=== PATIENT | male | born 1995 | race African-American/Black ===

== ENCOUNTER 2017-12-25 01:23 | Emergency (ER) | payer SELFPAY ==
[~2017-12-25] VITALS: Ht 180.3 cm; Wt 104.3 kg
[2017-12-25] MEDS ORDERED: NKM (01:30)
[2017-12-25 01:40] VITALS: BP 113/70
--- NOTE | 2017-12-25 01:56 | Emergency Room Report ---
History of Present Illness General Chief Complaint: Headache Source: Patient Present Illness HPI 22-year-old male with no medical problems presents with frontal and left-sided headache for the past roughly 4 days, gradual onset, throbbing, partial relief with ibuprofen, then developed epigastric area pain for the last 2 days, he reports no appetite, nausea, photophobia, but denies fevers, denies vomiting, denies any urinary complaints, denies any diarrhea or constipation, reports no other symptoms. Allergies: Coded Allergies: No Known Allergies (Unverified , 12/25/17) Patient History Past Medical History: see triage record Reviewed Nursing Documentation: PMH: Agreed; PSxH: Agreed Nursing Documentation-PMH Past Medical History: No Stated History Review of Systems All Other Systems: negative except mentioned in HPI Physical Exam Vital Signs Date Time Temp Pulse Resp B/P (MAP) Pulse Ox O2 Delivery O2 Flow Rate FiO2 12/25/17 01:26 98.0 91 16 113/70 96 Room Air 98.1 Sp02 EP Interpretation: reviewed, normal General Appearance: no apparent distress, alert, non-toxic Head: normocephalic Eyes: bilateral eye normal inspection, bilateral eye PERRL, bilateral eye EOMI ENT: normal ENT inspection, hearing grossly normal, normal pharynx, no angioedema, normal voice, moist mucus membranes Neck: normal inspection, full range of motion, supple, supple/symm/no masses Respiratory: chest non-tender, lungs clear, normal breath sounds, chest symmetrical, palpation of chest normal Cardiovascular #1: normal peripheral pulses, regular rate, rhythm Cardiovascular #2: 2+ radial (R), 2+ radial (L) Gastrointestinal: normal inspection, non tender, soft, no mass, no guarding, no rebound Rectal: deferred Genitourinary: normal inspection, no CVA tenderness Musculoskeletal: back normal, gait/station normal, normal range of motion, non- tender, no calf tenderness Neurologic: alert, responsive, compensation programs manager III-XII nml as tested, motor strength/tone normal, sensory intact, speech normal Psychiatric: judgement/insight normal, memory normal, mood/affect normal, no suicidal/homicidal ideation Skin: normal color, no rash, warm/dry, normal turgor Lymphatic: no adenopathy Medical Decision Making Diagnostic Impression: Primary Impression: Headache ER Course patient with a headache, symptomatology sounds most consistent with migraine, abdominal pain complaint seems to be milder; his abdomen is soft and but he complain of anorexia I suspect hunger pangs secondary to the nausea and loss of appetite from headache given ivf, reglan, benadryl, pepcid on re-eval, patient had great improvement and will be dc'd. wnl Last Vital Signs Date Time Temp Pulse Resp B/P (MAP) Pulse Ox O2 Delivery O2 Flow Rate FiO2 12/25/17 01:40 98.1 91 16 113/70 96 Room Air 98.1 Status: improved Disposition: HOME, SELF-CARE Condition: Stable RANDY DUDLEY M.D Dec 25, 2017 01:56
[2017-12-25] MEDS ORDERED: Acetaminophen 500mg (ES) tab ORAL ONE (02:00)
[2017-12-25] MEDS ORDERED: DiphenhydrAMINE 50mg/ml Inj IVP ONE (02:00)
[2017-12-25] MEDS ORDERED: Metoclopramide 10mg/2ml Inj IVP ONE (02:00)
[2017-12-25 02:49] LABS: BASOPHILS % (AUTO) 1.8 % (0.0-2.0); HEMOGLOBIN 14.3 G/DL (14.2-18.0); LYMPHOCYTES % (AUTO) 20.6 % (20.0-45.0); MEAN CORPUSCULAR VOLUME 92 FL (80-99); MONOCYTES % (AUTO) 11.7 % (1.0-10.0); PLATELET COUNT 200 K/UL (150-450); RED BLOOD COUNT 4.77 M/UL (4.70-6.10); RED CELL DISTRIBUTION WIDTH 10.7 % (11.6-14.8)
[2017-12-25 02:58] LABS: ANION GAP 6 mmol/L (5-15); BLOOD UREA NITROGEN 10 mg/dL (7-18); CALCIUM 8.8 MG/DL (8.5-10.1); CARBON DIOXIDE 27 MMOL/L (21-32); CHLORIDE 107 MMOL/L (98-107); POTASSIUM 3.6 MMOL/L (3.5-5.1); SODIUM 140 MMOL/L (136-145)
[2017-12-25 03:02] LABS: ALANINE AMINOTRANSFERASE 24 U/L (12-78); ALBUMIN 3.7 G/DL (3.4-5.0); ALKALINE PHOSPHATASE 35 U/L (46-116); ASPARTATE AMINO TRANSFERASE 13 U/L (15-37)
[2017-12-25] MEDS ORDERED: REGLAN10 MG ORAL (03:46)
[2017-12-25] MEDS ORDERED: BENADRYL25 M3 PO (03:47)
[2017-12-25 03:53] VITALS: BP 118/71
== END 2017-12-25 04:13 | disposition home or self-care (01) ==
LOC: EMR 01:50
DX: R51 Headache (principal)
CPT/HCPCS: 36415; 80053; 83690; 85025; 96360; 96374; 96375; 99284; J1200; J2765

== ENCOUNTER 2018-02-12 23:26 | Emergency (ER) | payer SELFPAY ==
[~2018-02-12] VITALS: Ht 175.3 cm; Wt 99.8 kg
[~2018-02-12 23:26] MED LIST: BENADRYL25 M3 PO; NKM; REGLAN10 MG ORAL
--- NOTE | 2018-02-12 23:40 | Emergency Room Report ---
History of Present Illness General Chief Complaint: Chest Pain Source: Patient Present Illness HPI Is a 23-year-old male with no past medical history. He presents with chief complaint of chest pain. Pain is diffuse in nature. Worse with inspiration. Worse with movement. Can't even bend over. The been ongoing for 2-3 days. Has not anything for it. No trauma. Hurts when he moves. He was at work so his employer told to come in to check it out. Denies any other complaint. Pain is 8 out of 10. No radiation. No diaphoresis. No shortness of breath. Allergies: Coded Allergies: No Known Allergies (Unverified , 12/25/17) Patient History Past Medical History: see triage record, old chart reviewed Past Surgical History: none Pertinent Family History: none Social History: Denies: smoking Immunizations: other Reviewed Nursing Documentation: PMH: Agreed; PSxH: Agreed Nursing Documentation-PM Past Medical History: No Stated History Review of Systems Eye: Denies: eye pain, blurred vision ENT: Denies: ear pain, nose congestion, throat swelling Respiratory: Denies: cough, shortness of breath Cardiovascular: Reports: chest pain; Denies: palpitations Gastrointestinal: Denies: abdominal pain, diarrhea, nausea, vomiting Musculoskeletal: Denies: back pain, joint pain Skin: Denies: rash Neurological: Denies: headache, numbness Endocrine: Denies: increased thirst, increased urine Hematologic/Lymphatic: Denies: easy bruising All Other Systems: negative except mentioned in HPI Physical Exam Vital Signs Date Time Temp Pulse Resp B/P (MAP) Pulse Ox O2 Delivery O2 Flow Rate FiO2 02/12/18 23:35 98.0 76 16 132/70 98 Room Air 98.1 vitals normal Sp02 EP Interpretation: reviewed, normal General Appearance: well appearing, no apparent distress, alert Head: normocephalic, atraumatic Eyes: bilateral eye PERRL, bilateral eye EOMI ENT: hearing grossly normal, normal pharynx Neck: full range of motion, supple, no meningismus Respiratory: lungs clear, normal breath sounds, other - diffuse pain with palpation mostly in the left chest Cardiovascular #1: regular rate, rhythm, no murmur Gastrointestinal: normal bowel sounds, non tender, no mass, no organomegaly, no bruit, non-distended Musculoskeletal: back normal, gait/station normal, normal range of motion Psychiatric: mood/affect normal Skin: warm/dry Medical Decision Making Diagnostic Impression: Primary Impression: Non-cardiac chest pain ER Course She presents with atypical chest pain. Noncardiac in origin. It is reproducible and been ongoing for several days. EKG normal. Troponin negative. We will discharge home. I seen once of ACS, PE, dissection to name a few. Lab Results Impression labs normal EKG Diagnostic Results Rate: normal Rhythm: NSR ST Segments: no acute changes ASA given to the pt in ED: No Rhythm Strip Diag. Results Rhythm Strip Time: 23:40 EP Interpretation: yes Rate: 69 Rhythm: NSR, no PVC's, no ectopy Chest X-Ray Diagnostic Results Chest X-Ray Diagnostic Results : Chest X-Ray Ordered: Yes # of Views/Limited/Complete: 1 View Indication: Chest Pain EP Interpretation: Yes Interpretation: no consolidation, no effusion, no pneumothorax, no acute cardiopulmonary disease Impression: No acute disease Electronically Signed by: Philippe Delatorre MD Last Vital Signs Date Time Temp Pulse Resp B/P (MAP) Pulse Ox O2 Delivery O2 Flow Rate FiO2 02/12/18 23:35 98.0 76 16 132/70 98 Room Air 98.1 Status: improved Disposition: HOME, SELF-CARE Condition: Stable Scripts Ibuprofen* (MOTRIN*) 600 Mg Tablet 600 MG ORAL THREE TIMES A DAY, #30 TAB 0 Refills Prov: PHILIPPE DELATORRE M.D. 02/13/18 Additional Instructions: Follow-up with your doctor in 7 days. Return if symptom worsen. PHILIPPE DELATORRE M.D. Feb 12, 2018 23:40
[2018-02-12] MEDS ORDERED: Ketorolac 30mg Inj IV ONE (23:45)
[2018-02-12 23:48] VITALS: BP 120/77
[2018-02-13 00:19] LABS: ANION GAP 6 mmol/L (5-15); BLOOD UREA NITROGEN 10 mg/dL (7-18); CALCIUM 8.8 MG/DL (8.5-10.1); CARBON DIOXIDE 29 MMOL/L (21-32); CHLORIDE 104 MMOL/L (98-107); CREATININE 1.1 MG/DL (0.55-1.30); POTASSIUM 3.5 MMOL/L (3.5-5.1); SODIUM 139 MMOL/L (136-145)
[2018-02-13 00:24] LABS: BASOPHILS % (AUTO) 1.8 % (0.0-2.0); EOSINOPHILS % (AUTO) 3.8 % (0.0-3.0); HEMATOCRIT 39.8 % (42.0-52.0); HEMOGLOBIN 13.7 G/DL (14.2-18.0); LYMPHOCYTES % (AUTO) 37.2 % (20.0-45.0); MEAN CORPUSCULAR VOLUME 91 FL (80-99); NEUTROPHILS % (AUTO) 48.2 % (45.0-75.0); PLATELET COUNT 206 K/UL (150-450); RED BLOOD COUNT 4.38 M/UL (4.70-6.10); RED CELL DISTRIBUTION WIDTH 10.6 % (11.6-14.8)
[2018-02-13 00:33] LABS: CKMB 1.3 NG/ML (0.0-3.6); CREATINE KINASE 198 U/L (26-308)
[2018-02-13 00:58] VITALS: BP 115/66
[2018-02-13] MEDS ORDERED: IBUPROFEN600 MG ORAL (01:07)
[2018-02-13 01:20] VITALS: BP 115/66
--- NOTE | 2018-02-13 02:55 | Diagnostic Imaging Report ---
EXAM: XR Chest, 1 View. CLINICAL HISTORY: Chest pain TECHNIQUE: Frontal view of the chest. COMPARISON: No relevant prior studies available. FINDINGS: Lungs: Lung volumes are within normal limits. No evidence of airspace consolidation or diffuse interstitial abnormality. Pleural spaces: No significant pleural effusion.. No pneumothorax. Heart: Unremarkable. No cardiomegaly. Mediastinum: Unremarkable. Bones: No acute fracture. Old, healed fracture of the right clavicle. IMPRESSION: No evidence of active cardiopulmonary abnormality.
--- NOTE | 2018-02-14 18:41 | Cardiology Report ---
APPROVED REPORT EKG Measurement Heart [id number] Normal sinus rhythm Cannot rule out Anterior infarct, age undetermined Abnormal ECG
== END 2018-02-13 01:20 | disposition home or self-care (01) ==
LOC: EMR 23:57
DX: R07.89 Other chest pain (principal)
CPT/HCPCS: 36415; 71045; 80048; 82550; 82553; 84484; 85025; 93005; 96374; 99284; J1885

== ENCOUNTER 2018-05-19 19:18 | Emergency (ER) | payer SELFPAY ==
[~2018-05-19] VITALS: Ht 180.3 cm; Wt 104.3 kg
[~2018-05-19 19:18] MED LIST changes: +IBUPROFEN600 MG ORAL
[2018-05-19 19:28] VITALS: BP 127/74
[2018-05-19] MEDS ORDERED: Norco 5mg/325mg tab ORAL ONE (20:00)
--- NOTE | 2018-05-19 20:23 | Emergency Room Report ---
History of Present Illness General Chief Complaint: Pain Source: Patient Present Illness HPI 23-year-old male presents to the emergency department complaining of 7 out of 10 in severity localized pain to the lateral right ankle since last night. Patient reports that he tripped when he was running and twisted his ankle. Patient reports pain is exacerbated upon attempts to move his foot in any way or weightbearing. He denies previous injury to this extremity denies open wounds or bruising. Denies numbness tingling or loss of sensation or gross motor movements of the extremities, incontinence of bowel or bladder. Denies CP , Palpitations, LOC, AMS, dizziness, Changes in Vision, weakness or a sudden severe headache. Allergies: Coded Allergies: No Known Allergies (Unverified , 12/25/17) Patient History Past Medical History: see triage record Past Surgical History: none Pertinent Family History: none Immunizations: UTD Reviewed Nursing Documentation: PMH: Agreed; PSxH: Agreed Nursing Documentation-PMH Past Medical History: No History, Except For Hx Asthma: Yes Review of Systems All Other Systems: negative except mentioned in HPI Physical Exam Vital Signs Date Time Temp Pulse Resp B/P (MAP) Pulse Ox O2 Delivery O2 Flow Rate FiO2 05/19/18 19:21 98.2 95 16 117/70 95 Sp02 EP Interpretation: reviewed, normal General Appearance: no apparent distress, alert, GCS 15, non-toxic Head: normocephalic, atraumatic Eyes: bilateral eye normal inspection, bilateral eye PERRL ENT: hearing grossly normal, normal voice Neck: full range of motion Respiratory: lungs clear, normal breath sounds, speaking full sentences Cardiovascular #1: regular rate, rhythm, normal capillary refill Cardiovascular #2: 2+ dorsalis pedis (R) Musculoskeletal: back normal, normal range of motion, swelling - lateral right ankle, tender - lateral right ankle and dorsum and lateral aspect of the right foot. Neurologic: alert, oriented x3, responsive, motor strength/tone normal, sensory intact, speech normal, grossly normal Psychiatric: judgement/insight normal Skin: normal color, no rash, warm/dry, well hydrated Medical Decision Making PA Attestation Dr. Clancy is my supervising Physician whom patient management has been discussed with. Diagnostic Impression: Primary Impression: Moderate ankle sprain Qualified Codes: S93.401A - Sprain of unspecified ligament of right ankle, initial encounter ER Course 23-year-old male presents to the emergency department complaining of 7 out of 10 in severity localized pain to the lateral right ankle since last night. Patient reports that he tripped when he was running and twisted his ankle. Patient reports pain is exacerbated upon attempts to move his foot in any way or weightbearing. He denies previous injury to this extremity denies open wounds or bruising. Denies numbness tingling or loss of sensation or gross motor movements of the extremities, incontinence of bowel or bladder. Denies CP , Palpitations, LOC, AMS, dizziness, Changes in Vision, weakness or a sudden severe headache. Ddx considered but are not limited to Fracture, dislocation, contusion, Sprain/ Strain/Spasm. Vital signs: are WNL, pt. is afebrile H&PE are most consistent with musculoskeletal injury will perform imaging to r/ o fractures/dislocations. ORDERS: - X-rays of the right FOOT and ANKLE - negative for fx, Dislocation, or significant soft tissue injury, per preliminary read in ED, and signed by KEVIN Thomas, my supervising physician has reviewed, and agrees with my interpretation. ED INTERVENTIONS: - Smithers PO -Air splint Splint applied to the right ankle by in tube conversion technician. Pt. remains neurovascularly intact. -Patient is provided with crutches and instructed on their use -I do not identify an emergent condition at this time. With current presentation , pt. is stable for close outpatient follow up and conservative treatment. D/ w pt. to return promptly to ED with worsening or new symptoms.- Pt. verbalizes' understanding and agreement with proposed treatment plan. DISCHARGE: At this time pt. is stable for d/c to home. Will provide printed patient care instructions, and any necessary prescriptions. Care plan and follow up instructions have been discussed with the patient prior to discharge. Other X-Ray Diagnostic Results Other X-Ray Diagnostic Results #1: X-Ray ordered: Right FOOT # of Views/Limited Vs Complete: 3 View Indication: Pain EP Interpretation: Yes PA Xray: Interpretation reviewed, by supervising MD, and agrees with findings. Interpretation: no dislocation, no soft tissue swelling, no fractures Impression: No acute disease Electronically Signed by: Candy Thomas PA-C Other X-Ray Diagnostic Results #2: X-Ray ordered: Right ANKLE # of Views/Limited Vs Complete: 3 View Indication: Pain EP Interpretation: Yes PA Xray: Interpretation reviewed, by supervising MD, and agrees with findings. Interpretation: no dislocation, no soft tissue swelling, no fractures Impression: No acute disease Electronically Signed by: Candy Thomas PA-C Last Vital Signs Date Time Temp Pulse Resp B/P (MAP) Pulse Ox O2 Delivery O2 Flow Rate FiO2 05/19/18 19:21 98.2 95 16 117/70 95 Disposition: HOME, SELF-CARE Condition: Stable Scripts Ibuprofen* (MOTRIN*) 600 Mg Tablet 600 MG ORAL THREE TIMES A DAY, #30 TAB 0 Refills Prov: Candy Thomas 05/19/18 Departure Forms: Return to Work Return to Work Date: May 23, 2018 Work Restrictions: None Return to Full Activity: May 23, 2018 Patient Instructions: Ankle Sprain, [id number] Additional Instructions: Take medications as directed. Follow up with a Primary Care Provider in 3-5 days, even if your symptoms have resolved. --Please review list of primary care clinics, if you do not already have a primary care provider Return sooner to ED if new symptoms occur, or current symptoms become worse. - Please note that this Emergency Department Report was dictated using [employer]360[employer] glass technician technology software, occasionally this can lead to erroneous entry secondary to interpretation by the dictation equipment. Candy Thomas May 19, 2018 20:23
[2018-05-19] MEDS ORDERED: IBUPROFEN600 MG ORAL (20:25)
[2018-05-19 20:40] VITALS: BP 130/69
[2018-05-19 20:41] VITALS: BP 130/69
--- NOTE | 2018-05-20 12:08 | Diagnostic Imaging Report ---
Indication: Right ankle pain Technique: 3 views of the right ankle Comparison: none Findings: No acute fractures. No dislocations. The joint spaces are preserved Impression: Negative
--- NOTE | 2018-05-20 12:08 | Diagnostic Imaging Report ---
Indication: Right foot pain Technique: 3 views right foot Comparison: none Findings: No acute fractures. No dislocations. The joint spaces are preserved. Impression: Negative
== END 2018-05-19 20:45 | disposition home or self-care (01) ==
LOC: EMR 20:38
DX: S93.401A Sprain of unspecified ligament of right ankle, initial encounter (principal); W18.40XA Slipping, tripping and stumbling without falling, unspecified, initial encounter; X50.1XXA Overexertion from prolonged static or awkward postures, initial encounter; Y93.02 Activity, running; Y92.89 Other specified places as the place of occurrence of the external cause; J45.909 Unspecified asthma, uncomplicated
CPT/HCPCS: 99284

== ENCOUNTER 2018-05-24 14:25 | Emergency (ER) | payer SELFPAY ==
[~2018-05-24] VITALS: Ht 180.3 cm; Wt 104.3 kg
[2018-05-24] MEDS ORDERED: IBUPROFEN600 MG ORAL (15:05)
--- NOTE | 2018-05-24 15:06 | Emergency Room Report ---
History of Present Illness General Chief Complaint: Lower Extremity Injury Source: Patient Present Illness HPI 23-year-old male patient presents to ER status post ankle sprain one week ago for repeat evaluation. States that he was at work when his boss noticed him limping, was told by his boss told him that he needs come back to ER for further evaluation and treatment, states not workmans compensation case. Reports that he needs a note for work saying that he requires more days off work , informed boss that was able to be given 3 days off work previously from ER, boss requesting further days off work because he is a liability. States pain improved since previous visit. Reports pain with ambulation and eversion. States has not been taking pain medication, did not fill prescription provided at previous visit. Reports has been using crutches as needed, wearing her splint, keeping leg elevated while at rest. Denies reinjury or trauma since previous visit. Denies fever, chest pain, SOB. Allergies: Coded Allergies: No Known Allergies (Unverified , 12/25/17) Patient History Past Medical History: see triage record Reviewed Nursing Documentation: PMH: Agreed; PSxH: Agreed Nursing Documentation-PMH Past Medical History: No History, Except For Hx Asthma: Yes Review of Systems All Other Systems: negative except mentioned in HPI Physical Exam Vital Signs Date Time Temp Pulse Resp B/P (MAP) Pulse Ox O2 Delivery O2 Flow Rate FiO2 05/24/18 14:39 98.2 86 18 135/76 98 Room Air Sp02 EP Interpretation: reviewed, normal General Appearance: well appearing, no apparent distress, alert, GCS 15, non- toxic Head: normocephalic, atraumatic Eyes: bilateral eye normal inspection, bilateral eye PERRL ENT: hearing grossly normal, normal pharynx, no angioedema, normal voice, uvula midline, moist mucus membranes Neck: full range of motion Respiratory: lungs clear, normal breath sounds, no rhonchi, no respiratory distress, no accessory muscle use, no wheezing, speaking full sentences Cardiovascular #1: regular rate, rhythm, no edema Cardiovascular #2: 2+ dorsalis pedis (R), 2+ dorsalis pedis (L) Musculoskeletal: back normal, digits/nails normal, gait/station normal, normal range of motion, other - NVI, cap refill < 2seconds, tender - dorusm of right ankle near anterior lateral malleolus Neurologic: alert, oriented x3, responsive, motor strength/tone normal, sensory intact Psychiatric: mood/affect normal Skin: no rash Medical Decision Making PA Attestation Dr. Zelaya is my supervising Physician whom patient management has been discussed with. Diagnostic Impression: Primary Impression: History of sprained ankle ER Course Pt. presents to the ED c/o ankle sprain, reevaluation requested. Ddx considered but are not limited to fracture, sprain, strain, contusion, dislocation. No erythema, no warmth to touch, no fever, nontoxic appearing, low suspicion for septic joint. Soft compartments, no pulselessness, no pallor, no paresthesias, low suspicion for compartment syndrome at this time. Vital signs: are WNL, pt. is afebrile ER COURSE Reports pain symptoms improved since previous visit, denies reinjury or trauma, does not require repeat x-ray at this time. Provide patient with Brenton wrap, pain medication and work note. Device patient follow-up with orthopedic urgent care and or primary care provider, provided with contact information for free and low-cost healthcare clinics. BRENTON wrap applied to right ankle checked afterwards by me showing good alignment and NVI. Patient has crutches in ER, advised on use. Patient instructed on RICE method: rest, ice, compression, elevation. Patient instructed on rest, ice and heat. Patient instructed to be WBAT Contact information for orthopedic urgent care provided, follow-up with urgent care if unable to followup with primary care provider and get referral to outpatient coding specialist. Followup with primary care provider. Discuss referral to ortho/pain management/ PT as needed. Discuss further imaging with MRI/CT as needed. DISCHARGE: -Rx provided for Ibuprofen for pain symptoms. At this time pt. is stable for d/c to home. Patient is resting comfortably, in no acute distress, nontoxic appearing, talking without difficulty. Will provide printed patient care instructions, and any necessary prescriptions. Patient instructed to follow with primary care provider in 3 - 5 days and to request further follow-up as needed. Care plan and follow up instructions have been discussed with the patient prior to discharge. Take medications as directed. Patient questions asked and answered. Patient reports understanding and agreement to treatment plan. ER precautions given, patient instructed to return to ER immediately for any new or worsening of symptoms. - Please note that this Emergency Department Report was dictated using [employer] or nursery transplanter technology software, occasionally this can lead to erroneous entry secondary to interpretation by the dictation equipment. Last Vital Signs Date Time Temp Pulse Resp B/P (MAP) Pulse Ox O2 Delivery O2 Flow Rate FiO2 05/24/18 14:39 98.2 86 18 135/76 98 Room Air Status: improved Disposition: HOME, SELF-CARE Condition: Stable Scripts Ibuprofen* (MOTRIN*) 600 Mg Tablet 600 MG ORAL Q8H PRN for For Pain, #30 TAB 0 Refills Prov: Otoniel Green 05/24/18 Patient Instructions: Ankle Sprain Additional Instructions: Patient instructed to follow up with primary care provider and discuss further referral to orthopedics/physical therapy/pain management as needed. If unable to followup with PCP, followup with orthopedic urgent care in 5-7 days , call to schedule appointment. Patient instructed on RICE method: rest, ice, compression, elevation. Patient instructed to WBAT. Take medications as directed. Patient questions asked and answered. ER precautions given, patient instructed to return to ER immediately for any new or worsening of symptoms. [facility] [address] [facility] [address] [facility], [id number] [email or web address] Otoniel Green May 24, 2018 15:05
[2018-05-24 15:22] VITALS: BP 135/76
== END 2018-05-24 15:26 | disposition home or self-care (01) ==
LOC: EMR 15:05
DX: S93.401D Sprain of unspecified ligament of right ankle, subsequent encounter (principal); X58.XXXD Exposure to other specified factors, subsequent encounter
CPT/HCPCS: 99283